=== PATIENT | female | born 1965 | race Caucasian/White ===

== ENCOUNTER 2017-08-16 12:29 | Emergency (ER) | payer BC, OTHER ==
[~2017-08-16] VITALS: Ht 160 cm; Wt 102.1 kg
[~2017-08-16 12:29] MED LIST: CYCL-36 PO; IBUP-238 PO; Z.0.NO CURRENT MEDS
[2017-08-16 12:45] VITALS: BP 170/92; PULSE 98; RESP 16; TEMP 97.9; O2SAT 98
[2017-08-16] MEDS ORDERED: KETOROLAC TROMETHAMINE 60 MG/2 ML (IM) VIAL IM ONE (14:00)
[2017-08-16] MEDS ORDERED: IBUP1TAB7 PO (14:03)
--- NOTE | 2017-08-16 14:04 | PD ---
HPI Chief Complaint: Musculoskeletal Complaint Time Seen by Provider: 13:39 Travel History International Travel<30 days: No Contact w/Intl Traveler<30days: No Traveled to known affect area: No History of Present Illness HPI This is a 52-year-old female with bilateral nontraumatic knee pain for 3 weeks. She denies fever, chills, warmth/erythema of the knees. Pain is worse with standing for long period of time and relieved with rest. She has attempted over -the-counter Tylenol and Motrin with minimal relief. Symptom severity is mild. No alleviating factors. PFSH Past Medical History Medical History: Denies Significant Hx Diminished Hearing: No Immunizations Current: Yes Influenza Vaccination: No ?: Not LMP: 6 months ago Tubal Ligation: Yes Past Surgical History Section: Yes Social History Alcohol Use: Yes (VERY RARE) Tobacco Use: No (NEVER) Substance Use: No Allergies-Medications (Allergen,Severity, Reaction): Coded Allergies: No Known Allergies (Verified Adverse Reaction, Unknown, 08/16/17) Reported Meds & Prescriptions Reported Meds & Active Scripts Active No Active Prescriptions or Reported Medications Review of Systems Except as stated in HPI: all other systems reviewed are Neg General / Constitutional: No: Fever Physical Exam Narrative GENERAL: Obese female. In no distress SKIN: Focused skin assessment warm/dry. No areas of erythema. HEAD: Normocephalic. EYES: No scleral icterus. No injection or drainage. NECK: Supple, trachea midline. MUSCULOSKELETAL: No cyanosis, or edema. Bilateral lower extremities: No swelling or edema of the legs. Patient reports generalized pain within the knees. No overlying warmth or erythema. No joint effusion. No bony tenderness. 2+ distal pulses. Data Data Last Documented VS Vital Signs Date Time Temp Pulse Resp B/P (MAP) Pulse Ox O2 Delivery O2 Flow Rate FiO2 08/16/17 12:45 97.9 98 16 170/92 (118) 98 Orders Orders Ed Discharge Order (08/16/17 13:58) Ketorolac Inj (Toradol Inj) (08/16/17 14:00) MDM Medical Decision Making Medical Screen Exam Complete: Yes Emergency Medical Condition: Yes Differential Diagnosis Arthritis, knee strain, knee pain Narrative Course 52-year-old female with nontraumatic bilateral knee pain for 3 weeks. Patient reports she is working 60 hour weeks and is on her feet for most of her shift. On exam she has no bony tenderness. No swelling, warmth, erythema of the joint. She is an obese female. Her pain is likely due to arthritis with the knees. She will be given a shot of Toradol instructed to follow with orthopedic doctor. Diagnosis Primary Impression: Knee pain, bilateral Qualified Codes: M25.561 - Pain in right knee; M25.562 - Pain in left knee Referrals: Orthopedist Scripts Ibuprofen (Ibuprofen) 800 Mg Tab 800 MG PO Q6HR Y for PAIN, #40 TAB 0 Refills Prov: Talia Brown 08/16/17 Disposition: DISCHARGE HOME Condition: Stable Talia Brown Aug 16, 2017 14:04
[2017-08-18] MEDS ORDERED: MELO15TA20 PO (14:25)
== END 2017-08-16 14:16 | disposition home or self-care (01) ==
LOC: PHEFT 12:29
DX: M25.562 Pain in left knee (principal); M25.561 Pain in right knee
CPT/HCPCS: 96372; 99284; J1885